=== PATIENT | male | born 1985 | race Caucasian/White ===

== ENCOUNTER 2023-07-16 19:35 | Outpatient (REF) | payer BC, SELFPAY ==
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
--- OUTSIDE RECORDS SUMMARY | 2023-07-16 19:46 | XMS_ITS | Continuity of Care Document ---
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
--- OUTSIDE RECORDS SUMMARY | 2023-07-16 19:46 | XMS_ITS | Continuity of Care Document ---
Author Name Unknown Organization [facility] Ambulatory Clinics Address [address] [place] [address] Care Team Providers Care Sign Carpenter Name Role Phone MIGEL WATTERS MD Primary Care Physician Encounter [facility] NBR [id number] Date(s): 06/07/23 - 06/07/23 [facility] Ambulatory Clinics [address] [place] [address] [place] Discharge Disposition: Home Assessment and Plan Future Scheduled Tests Radiology* MRI Spine Cervical w/o Contrast 08/23/23 Medications HYDROcodone-acetaminophen 10 mg-325 mg oral tablet 1 tab, Oral, BID, PRN as needed for pain, # 28 tab, 0 Refill(s), Pharmacy: [facility] Start Date: 04/02/23 Stop Date: 04/16/23 Status: Ordered ibuprofen 800 mg oral tablet 800 mg = 1 tab, Oral, PRN as needed for pain, # 30 tab, 0 Refill(s) Start Date: 04/27/23 Status: Ordered Problem List Condition Confirmation Course Effective Dates Status Health [facility] Informant Cervical disc herniation Confirmed Active Cervical spinal stenosis Confirmed Active Social History Social History Type Response Tobacco Former tobacco user Tobacco Use:. Sex Patient Care team information Care Team Personnel Name: MIGEL WATTERS MD Position: No Access Member Role: Primary Care Physician Address: Address: [address] [place] [id number]
[2023-07-16 20:39] LABS: Source Nasal/Nares
[2023-07-16 21:17] LABS: COVID-19 PCR Negative (Negative)
== END 2023-07-16 19:36 | disposition home or self-care (01) ==
LOC: LBN 19:35
PROVIDERS: Visit Provider Physician Assistant Medical
DX: J02.9 Acute pharyngitis, unspecified (principal)
CPT/HCPCS: 87635; 87070